=== PATIENT | female | born 1960 | race Caucasian/White ===

== ENCOUNTER → 2017-02-02 | Outpatient (CLI) | payer BC ==
[~2017-02-02] MED LIST: CIPR-212 PO; NO ROUTINE MEDS; ONDA4TAB7 PO
--- NOTE | 2017-02-02 09:44 | DI ---
Indication: ITS.REASON: M15.0 PRIMARY GENERALIZED OSTEOARTHRITIS;M25.511 PAIN IN RT SHOUL PROCEDURE: CT UPPER EXTREMITY RT W/O CONT: Encounter: Initial Comparison: None Technique: Axial noncontrast CT imaging of the right shoulder was performed with coronal and sagittal two-dimensional reformats. Three-dimensional surface shaded volume rendered imaging was also created and reviewed. Automated Exposure Control and Iterative Reconstruction dose reducing techniques were utilized. Findings: Significant metallic artifact from a prior internally fixed right clavicular fracture and the right shoulder prosthesis. No definite acute fracture or evidence of hardware loosening or failure. The visualized lung sweeney are clear. No rib fracture identified. Soft tissues are grossly normal. No fluid collection or hematoma. No axillary adenopathy. Mild narrowing of the acromioclavicular joint. Irregularity of glenoid, some of which is postoperative and some of which is degenerative. Impression: No acute osseous abnormality seen. No evidence of right shoulder replacement loosening or failure. .
== END ==
LOC: IMA 08:25
PROVIDERS: ATTEND Registered Nurse
DX: M15.0 Primary generalized (osteo)arthritis (principal); M25.511 Pain in right shoulder